=== PATIENT | male | born 1950 | race Caucasian/White ===

== ENCOUNTER 2018-02-19 08:54 | Outpatient (CLI) | payer MEDICARE, OTHER ==
[2018-02-19 11:16] LABS: ALT ALANINE AMINOTRANSFERASE 26 IU/L (10-60); AST ASPARTATE AMINOTRANSFERASE 34 IU/L (10-42); LDL CHOLESTEROL,DIRECT 78 mg/dL
== END 2018-02-19 08:55 | disposition home or self-care (01) ==
LOC: LAB.F 08:54
PROVIDERS: ATTEND Internal Medicine
DX: E78.5 Hyperlipidemia, unspecified (principal); Z79.899 Other long term (current) drug therapy
CPT/HCPCS: 36415; 83721; 84450; 84460

== ENCOUNTER 2018-05-06 10:23 | Outpatient (CLI) | payer MEDICARE, OTHER ==
[2018-05-06 18:48] LABS: CREATININE 0.9 mg/dL (0.6-1.2)
== END 2018-05-06 10:24 | disposition home or self-care (01) ==
LOC: LAB.F 10:23
PROVIDERS: ATTEND Physician Assistant Medical
DX: B35.1 Tinea unguium (principal); Z79.899 Other long term (current) drug therapy
CPT/HCPCS: 82565; 84450; 84460

== ENCOUNTER 2018-06-30 14:18 | Outpatient (CLI) | payer MEDICARE, OTHER ==
[2018-06-30 18:14] LABS: CREATININE 0.8 mg/dL (0.6-1.2)
== END 2018-06-30 14:19 | disposition home or self-care (01) ==
LOC: LAB.F 14:18
PROVIDERS: ATTEND Physician Assistant Medical
DX: B35.1 Tinea unguium (principal); Z79.899 Other long term (current) drug therapy
CPT/HCPCS: 36415; 82565; 84450; 84460

== ENCOUNTER 2018-08-26 08:41 | Outpatient (CLI) | payer MEDICARE, OTHER ==
[2018-08-26 11:45] LABS: CREATININE 0.8 mg/dL (0.6-1.2)
== END 2018-08-26 08:42 | disposition home or self-care (01) ==
LOC: LAB.F 08:41
PROVIDERS: ATTEND Physician Assistant Medical
DX: B35.1 Tinea unguium (principal); Z79.899 Other long term (current) drug therapy
CPT/HCPCS: 36415; 82565; 84450; 84460

== ENCOUNTER 2018-11-07 14:28 | Outpatient (CLI) | payer MEDICARE, OTHER ==
[2018-11-07 20:05] LABS: CREATININE 0.8 mg/dL (0.6-1.2)
== END 2018-11-07 14:29 | disposition home or self-care (01) ==
LOC: LAB.F 14:28
PROVIDERS: ATTEND Physician Assistant Medical
DX: B35.1 Tinea unguium (principal); Z79.899 Other long term (current) drug therapy
CPT/HCPCS: 36415; 82565; 84450; 84460

== ENCOUNTER 2019-02-19 09:52 | Day surgery (SDC) | payer MEDICARE, OTHER ==
[~2019-02-19 09:52] MED LIST: BRIMONIDINE 0.2% OPHTH DROPS 5 ML ONE; BSS/LIDOCAINE/EPINEPHRINE 1 ML SYRINGE ONE; CYCLOPENTOLATE 1% OPHTH DROPS 2 ML ONE; KETOROLAC 0.45% OPHTH DROPS ONE; PHENYLEPHRINE 2.5% OPHTH 2 ML DROPS ONE; PROPARACAINE 0.5% OPHTH DROPS 15 ML ONE; TIMOLOL 0.5% OPHTH DROPS ONE; TRIAMCIN/MOXIFLOX OPHTHALMIC 0.6 ML VIAL IO ONE; VANCOMYCIN OPHTHALMI 8MG/0.8ML 8 MG/0.8 ML SYRINGE IO ONE
[2019-02-19] MEDS ORDERED: LACTATED RINGERS 500 ML IV ONE (09:55)
--- NOTE | 2019-02-19 10:07 | ANESTHESIA ---
Pre-Anesthesia VS, & Labs - Diagnosis right nuclear cataract - Procedure right cataract extraction with intraocular lens implant Vital Signs: Temp Pulse Resp BP Pulse Ox 36 C L 72 18 106/63 100 02/18/19 13:43 02/18/19 13:43 02/18/19 13:43 02/18/19 13:43 02/18/19 13:43 Height 5 ft 11 in Weight (kg) 82 kg - NPO >8 hours Home Medications and Allergies Bimatoprost [Lumigan] 2.5 ml OP 11/05/13 Brimonidine/Timolol [Combigan] 1 drops OPTH BID 11/05/13 Allergies/Adverse Reactions: Allergies Allergy/AdvReac Type Severity Reaction Status Date / Time No Known Drug Allergies Allergy Verified 11/05/13 14:21 Anes History & Medical History - Anesthetic History Anesthesia Complications: reports: No previous complications - Medical History Cardiovascular: reports: Atrial fibrillation (several years ago, resolved with CPAP), Other Pulmonary: reports: Sleep apnea, CPAP use Gastrointestinal: reports: Other Urinary: reports: Benign prostate hypertrophy Musculoskeletal: reports: Other Endocrine/Autoimmune: reports: None Skin: reports: None - Surgical History Eyes Ears Nose Throat (EENT): Detached retina repair Orthopedic: Carpal Tunnel surgery, Other Exam General: Alert Dental: WNL Mouth Opening: Greater than 4 Fingerbreadths Mallampati classification: I Thyromental Distance: greater than 6 cm Respiratory: Lungs clear Cardiovascular: Regular rate Mental/Cognitive Status: Alert/Oriented X3 Plan Anesthesia Type: MAC Consent for Procedure(s) Verified and Reviewed: Yes Code Status: Attempt Resuscitation ASA classification: 2-Mild systemic disease Is this case an emergency?: No
[2019-02-19] MEDS ORDERED: PROPARACAINE 0.5% OPHTH DROPS 15 ML RIGHTEYE ONE ×2 (10:10→11:06)
[2019-02-19] MEDS ORDERED: KETOROLAC 0.45% OPHTH DROPS RIGHTEYE ONE (10:10)
[2019-02-19] MEDS ORDERED: CYCLOPENTOLATE 1% OPHTH DROPS 2 ML RIGHTEYE ONE (10:10)
[2019-02-19] MEDS ORDERED: PHENYLEPHRINE 2.5% OPHTH 2 ML DROPS RIGHTEYE ONE (10:10)
[2019-02-19] MEDS ORDERED: BRIMONIDINE 0.2% OPHTH DROPS 5 ML OPTH ONE (11:05)
[2019-02-19] MEDS ORDERED: EPINEPHrine 1 MG/ML AMP IVP ONE (11:05)
[2019-02-19] MEDS ORDERED: CHONDR SULF/HYALURONATE SYRINGE IO ONE (11:06)
[2019-02-19] MEDS ORDERED: TIMOLOL 0.5% OPHTH DROPS OPTH ONE (11:06)
[2019-02-19] MEDS ORDERED: BSS/LIDOCAINE/EPINEPHRINE 1 ML SYRINGE IO ONE (11:06)
[2019-02-19] MEDS ORDERED: VANCOMYCIN OPHTHALMI 8MG/0.8ML 8 MG/0.8 ML SYRINGE IO ONE (11:07)
[2019-02-19] MEDS ORDERED: TRIAMCIN/MOXIFLOX OPHTHALMIC 0.6 ML VIAL IO ONE (11:07)
[2019-02-19] MEDS ORDERED: fentaNYL 100 MCG/2 ML VIAL IVP ONE (11:22)
[2019-02-19] MEDS ORDERED: MIDAZOLAM 2 MG/2 ML VIAL IVP ONE (11:22)
[2019-02-19 11:50] VITALS: BP 99/77
--- NOTE | 2019-02-19 13:03 | OPERATIVE REPORT ---
DATE OF SERVICE: 02/19/2019 Physician: Jack Ku MD PREOPERATIVE DIAGNOSIS: Visually significant cataract, right eye and Cataract surgery was performed on the left eye on 12/05/2016. POSTOPERATIVE DIAGNOSIS: Visually significant cataract, right eye and Cataract surgery was performed on the left eye on 12/05/2016. PROCEDURE: Phacoemulsification with posterior chamber intraocular lens implant, right eye. SURGEON: Jack Ku MD ANESTHESIA: Monitored anesthesia care. COMPLICATIONS: None. OPERATIVE INDICATIONS: This is a 68-year-old man with progressive vision loss in the right eye due t o 2+ nuclear sclerotic cataract. Best corrected visual acuity was 20/50 with glare to 20/125 in the right eye. Indications for surgery are overall decrease in vision and difficulty seeing street signs , difficulty driving in low light or at night, difficulty driving at night because of headlights from other vehicles, and difficulty tracking a golf ball. He was consented at length concerning the risk s and benefits of cataract surgery, after which he expressed a desire to proceed with surgery. OPERATIVE PROCEDURE: The patient was taken into OR #3 and placed under monitored anesthesia care. A surgical timeout was conducted confirming the correct patient, correct procedure, and correct surgic al site. He was given topical anesthesia and then prepped and draped in the usual sterile fashion. The eye was entered at the 12 and 9 o'clock positions. Intracameral Shugarcaine was injected into th e anterior chamber, followed by Viscoat. A continuous-tear curvilinear capsulorrhexis was performed. The nucleus was hydrodissected and phacoemulsified. Cortex was evacuated using the automated infus ion and aspiration. Provisc was injected in the capsular bag, and a 15.5 diopter intraocular lens in serted in the bag. Approximately 0.8 mL of a mixture of triamcinolone, moxifloxacin and vancomycin w as injected subconjunctivally in the superior quadrant for infection and inflammation prophylaxis. I and A was used to evacuate the viscoelastic. The eye was inflated to physiologic pressure using bal anced salt solution and found to be watertight. The patient was taken from the operating room in goo d condition and given postoperative instructions. TD: 02/19/2019 11:29
== END 2019-02-19 09:53 | disposition home or self-care (01) ==
LOC: SDS 09:52
PROVIDERS: ATTEND Ophthalmology
PROC: 08RJ3JZ Replacement of Right Lens with Synthetic Substitute, Percutaneous Approach (ICD-10-PCS; principal; 2019-02-19 11:00)
DX: H25.11 Age-related nuclear cataract, right eye (principal); I48.91 Unspecified atrial fibrillation; G47.33 Obstructive sleep apnea (adult) (pediatric); I10 Essential (primary) hypertension; N40.0 Benign prostatic hyperplasia without lower urinary tract symptoms
CPT/HCPCS: 66984; 93005; A9270; J3490; V2632

== ENCOUNTER 2020-01-25 19:00 | Outpatient (CLI) | payer MEDICARE, OTHER | END 2020-01-25 19:01 | disposition home or self-care (01) | LOC: COV 19:00 | PROVIDERS: ATTEND Family Medicine | DX: R05 Cough (principal); R53.83 Other fatigue | CPT/HCPCS: 81599 ==

== ENCOUNTER 2021-06-26 07:42 | Outpatient (CLI) | payer MEDICARE, OTHER ==
--- NOTE | 2021-06-26 10:28 | XRAY Report ---
PROCEDURE: Ribs w/PA Chest LT INDICATIONS: S20.20XA CONTUSION OF THORAX TECHNIQUE: 3 views of the left ribs were acquired, along with a single view chest. COMPARISON: None FINDINGS: Surgical changes and devices: None. Bones and chest wall: No fractures or dislocations. No suspicious bony lesions. Overlying soft tis sues appear unremarkable. Lungs and pleura: No pleural effusions or pneumothorax. Lungs appear clear. Mediastinum: Mediastinal contours appear normal. Heart size is enlarged. IMPRESSION: No visualized acute fracture or dislocation. However, occult injury cannot be excluded. Recommend beth rt interval imaging follow-up in 7-10 days as clinically indicated for additional evaluation. Reviewed by: Lindsey Fernandez MD on 06/26/2021 10:27 AM PDT Approved by: Lindsey Fernandez MD on 06/26/2021 10:27 AM PDT Station ID: [id number]
== END 2021-06-26 07:43 | disposition home or self-care (01) ==
LOC: DI.S 07:42
PROVIDERS: ATTEND Registered Nurse
DX: S20.20XA Contusion of thorax, unspecified, initial encounter (principal)

== ENCOUNTER 2022-02-06 09:38 | Outpatient (CLI) | payer MEDICARE, OTHER | END 2022-02-06 09:39 | disposition home or self-care (01) | LOC: LAB.S 09:38 | PROVIDERS: ATTEND Urology | DX: C61 Malignant neoplasm of prostate (principal) | CPT/HCPCS: 36415; 84153 ==

== ENCOUNTER 2022-03-14 10:41 | Outpatient (CLI) | payer MEDICARE, OTHER | END 2022-03-14 10:42 | disposition home or self-care (01) | LOC: LAB.S 10:41 | PROVIDERS: ATTEND Urology | DX: C61 Malignant neoplasm of prostate (principal); Z53.9 Procedure and treatment not carried out, unspecified reason ==

== ENCOUNTER 2023-08-08 14:36 | Outpatient (CLI) | payer MEDICARE, OTHER ==
--- NOTE | 2023-08-08 16:13 | XRAY Report ---
PROCEDURE: Shoulder 2 View RT INDICATIONS: PAIN OF RIGHT SHOULDER JOINT TECHNIQUE: 3 views of the shoulder were acquired. COMPARISON: None. FINDINGS: Bones: No fractures or dislocations. No suspicious bony lesions. Visualized ribs appear intact. Mo derate acromioclavicular joint osteoarthritic. Mild glenohumeral joint arthritis. Soft tissues: No suspicious soft tissue calcifications. The visualized lungs are within normal limi ts. IMPRESSION: No acute osseous abnormality. If there is continued concern for pathology consider advancing imaging (CT, MR, bone scan) were additional evaluation. Right shoulder osteoarthritis. Reviewed by: Yohana Guaman MD, PhD on 08/08/2023 4:12 PM PST Approved by: Yohana Guaman MD, PhD on 08/08/2023 4:12 PM PST Station ID: [id number]
== END 2023-08-08 14:37 | disposition home or self-care (01) ==
LOC: DI.S 14:36
PROVIDERS: ATTEND Registered Nurse
DX: M19.011 Primary osteoarthritis, right shoulder (principal)

== ENCOUNTER 2023-09-03 16:30 | Outpatient (CLI) | payer MEDICARE, OTHER ==
--- NOTE | 2023-09-04 22:19 | MRI Report ---
PROCEDURE: SHOULDER WO - RT INDICATIONS: RIGHT SHOULDER PAIN TECHNIQUE: Noncontrast oblique coronal T2 fast spin echo with fat saturation, oblique sagittal T1 spin echo and T2 fast spin echo with fat saturation, axial T1 spin echo and T2 fast spin echo with fat saturation t hrough the shoulder. COMPARISON: Shoulder radiograph dated 08/08/2023. FINDINGS: Image quality: Excellent. Rotator cuff: Moderate grade articular and bursal surface partial-thickness tear involving distal sup raspinatus at its insertion on humeral head is seen extending to musculotendinous junction. Focal ful l-thickness perforation involving anterior to mid fibers of distal supraspinatus approximately 1.9 cm from its insertion on humeral head is seen with up to 2 mm medial retraction of torn tendon fibers. Moderate grade articular surface partial-thickness tear involving distal infraspinatus. Moderate grad e partial-thickness involving superior to mid fibers of distal subscapularis. No rotator cuff muscle atrophy on sagittal images. Bones and bursae: Large amount of fluid within acromioclavicular joint is seen. There is widening of joint space with erosive changes involving distal clavicle and acromion. Surrounding soft tissue rosalinda a is also seen. The acromioclavicular ligaments are thickened suggestive of ligament sprain. No full- thickness ligament rupture. Mild to moderate glenohumeral joint osteoarthritic changes are seen. Smal l to moderate amount of joint effusion and subacromial subdeltoid bursal fluid is seen, no gross loos e bodies. Capsule and soft tissues: There is extensive signal abnormality and fraying of posterior labrum sugge stive of extensive posterior labral tear from 6 to 12:00 position. There is also suggestion of anteri or inferior labral tear at 4 to 6:00 position. The long head of the biceps tendon is thickened with i ntrasubstance T2 hyperintense signal. The rotator interval appears normal, without fibrosis. The cor acohumeral ligament is normal in thickness. IMPRESSION: 1. Marrow edema and bony erosive changes involving acromioclavicular joint with extensive surrounding soft tissue edema and moderate to large joint effusion. Sprain of acromioclavicular ligament. Findin g may represent posttraumatic osteolyses involving acromioclavicular joint. Septic arthritis cannot b e excluded, suggest clinical correlation. 2. Moderate glenohumeral joint osteoarthritis. No acute fracture or dislocation. Small to moderate am ount of joint effusion and subacromial subdeltoid bursal fluid. No gross loose bodies. 3. Moderate grade articular and bursal surface partial-thickness tear involving distal supraspinatus extending to musculotendinous junction with focal full-thickness perforation involving anterior to mi d fibers of distal supraspinatus approximately 1.9 cm from its insertion on humeral head and up to 2 mm medial retraction of torn tendon fibers. 4. Moderate grade articular surface partial-thickness tear involving distal infraspinatus. Moderate g rade partial-thickness involving superior to mid fibers of distal subscapularis. 5. Extensive signal abnormality throughout posterior and inferior labrum extending from 4 to 12:00 po sition suggestive of extensive labral tear. Reviewed by: Minh Can MD on 09/04/2023 10:18 PM PST Approved by: Minh Can MD on 09/04/2023 10:18 PM PST Station ID: [id number]
== END 2023-09-03 16:31 | disposition home or self-care (01) ==
LOC: DI 16:30
PROVIDERS: ATTEND Registered Nurse
DX: M85.811 Other specified disorders of bone density and structure, right shoulder (principal); R93.6 Abnormal findings on diagnostic imaging of limbs; M25.411 Effusion, right shoulder; S43.491A Other sprain of right shoulder joint, initial encounter; M19.011 Primary osteoarthritis, right shoulder; M75.111 Incomplete rotator cuff tear or rupture of right shoulder, not specified as traumatic

== ENCOUNTER 2024-03-09 08:27 | Outpatient (CLI) | payer MEDICARE, OTHER ==
--- NOTE | 2024-03-09 08:48 | XRAY Report ---
PROCEDURE: Chest 2V INDICATIONS: EXPIRATORY WHEEZING TECHNIQUE: 2 views of the chest were acquired. COMPARISON: Rib series dated 06/26/2021. FINDINGS: Surgical changes and devices: None. Lungs and pleura: No pleural effusions or pneumothorax. Lungs are clear. Mediastinum: Mediastinal contours appear normal. Heart size is normal. Bones and chest wall: No suspicious bony lesions. Overlying soft tissues appear unremarkable. IMPRESSION: No acute cardiopulmonary process. Reviewed by: Minh Can MD on 03/09/2024 8:47 AM PDT Approved by: Minh Can MD on 03/09/2024 8:47 AM PDT Station ID: [id number]
== END 2024-03-09 23:59 | disposition home or self-care (01) ==
LOC: DI.S 08:27
PROVIDERS: ATTEND Registered Nurse
DX: R06.2 Wheezing (principal); R05.1 Acute cough; R09.02 Hypoxemia